=== PATIENT | female | born 2000 | race Caucasian/White ===

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

== ENCOUNTER 2018-04-23 14:12 | Emergency (ER) | payer OTHER ==
[2018-04-23 14:54] VITALS: BP 127/80
[2018-04-23] MEDS ORDERED: Ibuprofen ADULT LIQ* 600 MG/30 ML UDC PO ONE (15:19)
[2018-04-23] MEDS ORDERED: Ondansetron ODT TAB* 4 MG PO ONE (15:20)
--- NOTE | 2018-04-23 15:27 | UC ---
General HPI - HPI Summary HPI Summary: Patient presents complaining of nausea, migraine headache, feeling shaky and having chills. She states it began last week and then got better however yesterday she started to feel the same. She denies any associated history of injury but states this is not the worst headache of her life and she has not had an actual fever. not an abrupt headache. She admits to having had a runny nose and occasional cough but no short of breath, nausea, vomiting or diarrhea. She does have history of migraine and reports that the headache part does feel a typical migraine. She's been taking Tylenol but it has not given her relief. - History of Current Complaint Chief Complaint: UCGeneralIllness Stated Complaint: MCDOWELL/NAUSEA Time Seen by Provider: 04/23/18 15:11 Hx Obtained From: Patient Hx Last Menstrual Period: 04/11/18 Pain Intensity: 7 Associated Signs & Symptoms: Positive: Cough, Headache, Nausea - Allergy/Home Medications Allergies/Adverse Reactions: Allergies Allergy/AdvReac Type Severity Reaction Status Date / Time No Known Allergies Allergy Verified 04/23/18 14:54 Home Medications: Home Medications Aspirin/Acetaminophen/Caffeine [Headache Relief Caplet] 2 each PO DAILY [History Confirmed 04/23/18] PMH/Surg Hx/FS Hx/Imm Hx Neurological History: Migraine - Surgical History Surgical History: None - Family History Known Family History: Positive: Diabetes, Other - sudden in paternal GM before age 50. MIGRAINES - Social History Occupation: Employed Part-time, Student - Mother has migraines Alcohol Use: None Substance Use Type: None Smoking Status (MU): Never Smoked Tobacco - Immunization History Vaccination Up to Date: Yes Review of Systems Constitutional: Chills Eyes: Photophobia ENT: Sinus Congestion Gastrointestinal: Nausea Neurological: Headache Is Patient Immunocompromised?: No All Other Systems Reviewed And Are Negative: Yes Physical Exam Triage Information Reviewed: Yes Appearance: Well-Appearing Vital Signs: Initial Vital Signs Temp 98.1 F 04/23/18 14:47 Pulse 74 04/23/18 14:47 Resp 16 04/23/18 14:47 BP 127/80 04/23/18 14:47 Pulse Ox 100 04/23/18 14:47 Vital Signs Reviewed: Yes Eyes: Positive: Conjunctiva Clear ENT: Positive: Pharynx normal, Nasal congestion, TMs normal. Negative: Nasal drainage, Sinus tenderness Neck: Positive: Supple, Nontender, No Lymphadenopathy. Negative: Nuchal Rigidity Respiratory: Positive: Lungs clear, Normal breath sounds Cardiovascular: Positive: RRR, No Murmur Abdomen Description: Positive: Nontender, No Organomegaly, Soft Bowel Sounds: Positive: Present Musculoskeletal: Positive: ROM Intact Neurological: Positive: Other: - Patient is alert and oriented to person place and time. Cranial nerves II through XII are intact. She performs rapid alternating moves with ease. She has 5 out of 5 strength and 2+ reflexes 4. negative Romberg and negative pronator drift. She has a normal steady gait. Re-Evaluation - Re-Evaluation First Eval Re-Evaluation Time: 15:59 Change: Improved - states nausea is gone and MCDOWELL is resolving. Course/Dx - Course Course Of Treatment: no concern for intracranial lesion or bleed. hx / PE c/w uri and migraine.. will tx with nsaid and zofran. - Differential Dx - Multi-Symptom Provider Diagnoses: URI. migraine headache. Discharge - Sign-Out/Discharge Documenting (check all that apply): Patient Departure All imaging exams completed and their final reports reviewed: No Studies - Discharge Plan Condition: Improved Disposition: HOME Prescriptions: Ondansetron [Zofran Odt] 4 mg PO Q6HR PRN #20 tab.rapdis PRN Reason: Nausea Patient Education Materials: Upper Respiratory Infection (ED), Migraine Headache (ED) Forms: *Work Release Referrals: Dustin Jiménez MD [Primary Care Provider] - 5 Days Additional Instructions: TAKE OVER THE COUNTER ALEVE PER LABEL NEEDED FOR HEADACHES. - Billing Disposition and Condition Condition: IMPROVED Disposition: Home
== END 2018-04-23 16:08 | disposition home or self-care (01) ==
LOC: UCCORT 14:12
DX: J06.9 Acute upper respiratory infection, unspecified (principal); G43.909 Migraine, unspecified, not intractable, without status migrainosus
CPT/HCPCS: 99212; A9270-GY; G0463

== ENCOUNTER 2018-07-19 12:59 | Emergency (ER) | payer OTHER ==
--- OUTSIDE RECORDS SUMMARY | 2018-07-19 13:05 | XMS REPORT | Continuity of Care Document ---
:2000 External Reference #:[id number] Author Name Unruly CintronDO Address [address] [place] [address] Care Team Providers Name Role Phone Dustin Jiménez MD Care Team Information Mail List Librarian Unavailable Dustin Jiménez MD Primary Care Physician Unavailable Payers Type Date Identification Numbers Payment Provider Subscriber Policy Number: [id number] Agustin Crews PayID: [id number] [address] [place] [address] Advance Directives Description No Information Available Problems Description No Information Family History Description No Information Available Social History Type Date Description Comments Sex Unknown Tobacco Use Start: Unknown Patient has never smoked Smoking Status Reviewed: 06/15/18 Patient has never smoked Allergies, Adverse Reactions, Alerts Description No Known Drug Allergies Medications Medication Date Status Form Strength Qnty SIG Indications Ordering Provider Ondansetron Active Tablets 4mg 15tabs Dissolve Unruly Odt 018 Dispers Under Saida, Tongue DO Lo Loestrin Fe 00/00/0 Active Tablets 1mg-10 mcg Take 1 Unknown 000 / 10 mcg Tablet By Mouth Every Day Immunizations Description No Information Available Vital Signs Date Vital Result Comment 06/15/2018 2:56pm Height 66 inches 5'6" Weight 115.00 lb BP Systolic 132 mmHg BP Diastolic 87 mmHg Heart Rate 108 /min BMI (Body Mass Index) 18.6 kg/m2 Results Test Date Facility Test Result H/L Range Note CMP(!) 06/15/2018 [facility] Sodium(!) 138 mEq/L 134- 149 [address] [place] [address] [phone] Potassium(!) 4.0 mEq/L 3.6-5.5 Chloride Serum/Plasma(!) 106 mEq/L 94-112 Carbon Dioxide Ser/Plasm(!) 25 mEq/L 21-33 BUN - Urea Nitrogen(!) 14 mg/dL 6-24 Calcium Ser/Plasma Mass/Vol(!) 9.2 mg/dL 8.6-10.2 Creatinine Serum Mass/Vol(!) 0.9 mg/dL 0.5-1.4 Glucose Serum(!) 86 mg/dL 70-105 BUN/Creatinine Ratio(!) 15.6 RATIO 8.0-36 Albumin Serum/Plasma(!) 4.6 g/dL 3.5-5.2 Alkaline Phosphatase(!) 49 U/L 39-117 Bilirubin Total Mass/Vol 0.4 mg/dL 0.2-1.3 Ast - Sgot 16 U/L 5-34 Alt - SGPT 14 U/L 10-40 Protein Total 6.5 g/dL 6.2-8.1 Laboratory test 06/15/2018 [facility] Esr Sedimentation 12 MM 0-[address] Rate(!) [place] [address] [phone] C-Reative Protein 0.5 <5.0 TSH Thyroid Stim Hormone(!) 2.57 0.38-4.31 Celiac 2! 06/15/2018 [facility] Immunoglobulin A (Iga) 154 mg/dL 61 - 356 1 Tissue Transglutamianse Iga AB <1.2 U/mL 2 Laboratory test finding 06/15/2018 [facility] Free T4 (Free 0.79 ng/dL N 0.61- 1.12 3 Thyroxine) 1 Test Performed by: [address] [address] 2 REFERENCE VALUE <4.0 (Negative) Test Performed by: [address] [address] 3 [id number] Procedures Description No Information Available Encounters Type Date Location Provider Dx Diagnosis Office Visit 06/15/2018 [facility] Unruly Cintron, K59.00 Constipation , 3:15p Associates [facility] unspecified R10.13 Epigastric pain R11.0 Nausea R68.81 Early satiety Plan of Treatment Future Appointment(s):07/14/2018 10:00 am - Unruly Cintron DO at [facility]06/15/2018 - Unruly Cintron DOK59.00 Constipation, falfoarifzlM71.13 Epigastric painR11.0 IwigibL91.81 Early satiety
[2018-07-19 13:34] VITALS: BP 131/83
--- NOTE | 2018-07-19 13:41 | UC ---
FLU HPI - HPI Summary HPI Summary: 18 yo female presents with body aches, fatigue, and f/l ear pain for the last 4- 5 days. She has not been taking anything OTC. Has felt warm/cold, but has not taken her temperature. Denies cough, SOB, chest pain, n/v. - History of Current Complaint Chief Complaint: UCGeneralIllness Stated Complaint: BODY ACHES Time Seen by Provider: 07/19/18 13:40 Hx Obtained From: Patient Hx Last Menstrual Period: weeks Severity Currently: Mild Severity Initially: Moderate Pain Intensity: 6 Pain Scale Used: 0-10 Numeric - Allergy/Home Medications Allergies/Adverse Reactions: Allergies Allergy/AdvReac Type Severity Reaction Status Date / Time No Known Allergies Allergy Verified 07/19/18 13:34 Home Medications: Home Medications Omeprazole CAP* [Prilosec CAP* 20 MG] 40 mg PO DAILY 07/19/18 [History Confirmed 07/19/18] PMH/Surg Hx/FS Hx/Imm Hx GI/ History: Gastroesophageal Reflux Neurological History: Migraine - Surgical History Surgical History: None - Family History Known Family History: Positive: Diabetes, Other - sudden in paternal GM before age 50. MIGRAINES - Social History Lives: With Family Alcohol Use: Rare Substance Use Type: None Smoking Status (MU): Never Smoked Tobacco - Immunization History Vaccination Up to Date: Yes Review of Systems All Other Systems Reviewed And Are Negative: Yes Constitutional: Positive: Fatigue, Other - Body aches Skin: Positive: Negative Eyes: Positive: Negative ENT: Positive: Ear Ache Respiratory: Positive: Negative Cardiovascular: Positive: Negative Gastrointestinal: Positive: Negative Neurovascular: Positive: Negative Neurological: Positive: Negative Psychological: Positive: Negative Physical Exam - Summary Physical Exam Summary: GENERAL: NAD. WDWN. No pain distress. SKIN: No rashes, sores, lesions, or open wounds. HEENT: Head: AT/NC Eyes: EOM intact. Conjunctiva clear without inflammation or discharge. Ears: Hearing grossly normal. RIGHT TM with moderate bulging and clear fluid. No erythema No canal edema or drainage. Nose: Nasal mucosa pink and moist. NTTP maxillary and frontal sinus. Throat: Posterior oropharynx without exudates, erythema, or tonsillar enlargement. Uvula midline. NECK: Supple. Nontender. No lymphadenopathy. CHEST: CTAB. No r/r/w. No accessory muscle use. Breathing comfortably and in no distress. CV: RRR. Without m/r/g. Pulses intact. NEURO: Alert. PSYCH: Age appropriate behavior. Triage Information Reviewed: Yes Vital Signs: Initial Vital Signs Temp 99.1 F 07/19/18 13:30 Pulse 81 07/19/18 13:30 Resp 15 07/19/18 13:30 BP 131/83 07/19/18 13:30 Pulse Ox 100 07/19/18 13:30 Vital Signs Reviewed: Yes Flu Course/Dx - Course Course Of Treatment: Serous otitis media right. Rx for claritin and flonase. - Differential Dx/Diagnosis Provider Diagnosis: Serous otitis media Discharge - Sign-Out/Discharge Documenting (check all that apply): Patient Departure All imaging exams completed and their final reports reviewed: No Studies - Discharge Plan Condition: Stable Disposition: HOME Prescriptions: Fluticasone NASAL SPRAY 50MCG* [Flonase NASAL SPRAY 50MCG*] 2 spray BOTH NARES DAILY #1 btl LoraTADine TAB(NF) [Claritin 10 MG TAB(NF)] 10 mg PO DAILY #30 tab Patient Education Materials: Serous Otitis Media (ED) Referrals: Dustin Jiménez MD [Primary Care Provider] - Additional Instructions: If you develop a fever, shortness of breath, chest pain, new or worsening symptoms - please call your PCP or go to the ED. - Billing Disposition and Condition Condition: STABLE Disposition: Home
== END 2018-07-19 14:09 | disposition home or self-care (01) ==
LOC: UCEAST 12:59
DX: H65.91 Unspecified nonsuppurative otitis media, right ear (principal); K21.9 Gastro-esophageal reflux disease without esophagitis; Z79.899 Other long term (current) drug therapy
CPT/HCPCS: 99211; G0463

== ENCOUNTER 2018-09-08 14:25 | Inpatient (IN) | payer OTHER ==
--- NOTE | 2018-09-08 14:42 | ED ---
Substance Abuse/Use - HPI Summary HPI Summary: Pt is a 18 y/o female brought in by EMS who presents to the ED s/p overdose. At 10:00 she intentionally took 8-10 Excedrin Migraine pills, each of which contains 250 mg Acetaminiophen, 250 mg ASA, and 65 mg caffeine. Pt also took 2 Extra Strength Aleve pills, each of which contains 250 mg Naproxen. Her mother and grandfather found her unresponsive at home. Upon EMS arrival she was responsive to pain and shortly thereafter became alert. Poison control recommends lab work, EKG, and charcoal. She now reports nausea and acute abdominal pain rated a 7/10 in severity. When asked why she took these medications, she states she wanted to make herself sick but doesnt know why. Pt regrets taking the medications and states it was not a suicide attempt. She denies any hx of depression, anxiety, or suicide attempt. FHx depression and anxiety. She denies any use of other drugs or alcohol. - History Of Current Complaint Stated Complaint: MHE Time Seen by Provider: 09/08/18 14:26 Hx Obtained From: Patient, Family/Cheese Production Supervisor - Parents Hx Last Menstrual Period: weeks Ingestion History: Type/Name Of Drug - 8-10 Excedrin Migraine pills, 2 Extra Strength Aleve pills, Approximate Time Of Ingestion - 10:00 Overdose Characteristics: Oral Aggravating Factor(s): Nothing Alleviating Factor(s): Nothing Associated Signs And Symptoms: Nausea, Other: - Abdominal pain - Allergies/Home Medications Allergies/Adverse Reactions: Allergies Allergy/AdvReac Type Severity Reaction Status Date / Time No Known Allergies Allergy Verified 07/19/18 13:34 Home Medications: Home Medications LoraTADine TAB(NF) [Claritin 10 MG TAB(NF)] 10 mg PO DAILY PRN 09/08/18 [ History Confirmed 09/08/18] Norethindr/Eth Estradiol(Nf) [Lo Loestrin Fe (NF)] 1 tab PO DAILY 09/08/18 [ History Confirmed 09/08/18] PMH/Surg Hx/FS Hx/Imm Hx Endocrine/Hematology History: Denies: Hx Diabetes, Hx Thyroid Disease Cardiovascular History: Denies: Hx Hypertension Respiratory History: Denies: Hx Asthma, Hx Chronic Obstructive Pulmonary Disease (COPD) GI History: Reports: Hx Gastroesophageal Reflux Disease Denies: Hx Ulcer Psychiatric History: Denies: Hx Anxiety, Hx Depression, Hx Suicide Attempt Infectious Disease History: No Infectious Disease History: Denies: Hx Hepatitis, Hx Human Immunodeficiency Virus (HIV), Traveled Outside the [place] in Last 30 Days - Family History Known Family History: Positive: Diabetes, Other - depression, anxiety, MIGRAINES - Social History Alcohol Use: Rare Hx Substance Use: No Substance Use Type: Reports: None Hx Tobacco Use: No Smoking Status (MU): Never Smoked Tobacco Review of Systems Positive: Abdominal Pain, Nausea Positive: Other - self-harm All Other Systems Reviewed And Are Negative: Yes Physical Exam - Summary Physical Exam Summary: Appearance: Well appearing, no pain distress Skin: warm, dry, reflects adequate perfusion, no signs of self-injury Head/face: normal Eyes: EOMI, ZENON ENT: mucous membranes moist Neck: supple, non-tender Respiratory: CTA, breath sounds present Cardiovascular: RRR, pulses symmetrical Abdomen: non-tender, soft Bowel Sounds: present Musculoskeletal: normal, strength/ROM intact Neuro: normal, sensory motor intact, A&Ox3 Psych: mildly flat affect Triage Information Reviewed: Yes Vital Signs On Initial Exam: Initial Vitals Temp Pulse Resp BP Pulse Ox 98.0 F 88 14 123/71 100 09/08/18 14:27 09/08/18 14:27 09/08/18 14:27 09/08/18 14:27 09/08/18 14:27 Vital Signs Reviewed: Yes Diagnostics - Vital Signs Vital Signs Temp Pulse Resp BP Pulse Ox 09/08/18 14:27 98.0 F 88 14 123/71 100 - Laboratory Result Diagrams: 09/08/18 15:09 09/08/18 15:09 Lab Statement: Any lab studies that have been ordered have been reviewed, and results considered in the medical decision making process. - EKG 15:16 Cardiac Rate: NL - 77 bpm EKG Rhythm: Sinus Rhythm ST Segment: Normal Summary of EKG Findings: Nl axis, nl intervals Re-Evaluation - Re-Evaluation First Eval Re-Evaluation Time: 16:25 Change: Unchanged Comment: Pt is medically cleared for a MHE. Course/Dx - Course Course Of Treatment: Nurse's notes reviewed. Patient with subtoxic ingestion. Patient has subtoxic Tylenol level at 4 hours. Her aspirin level was 19 and will be repeated. She was given a dose of charcoal. She has no ill effect including no tachypnea. This was per recommendation of poison control. She is cleared for mental health evaluation, following which she was accepted for inpatient therapy by involuntary admission by the psychiatrist. - Diagnoses Differential Diagnosis/HQI/PQRI: Positive: Other - Drug ingestion, suicide attempt, depression, anxiety, mood disorder Provider Diagnoses: Mood disorder, Suicide gesture, Suicide attempt by drug ingestion - Critical Care Time Critical Care Time: 30-74 min - Critical care time is exclusive of separately billable procedures Discharge - Sign-Out/Discharge Documenting (check all that apply): Sign-Out Patient Signing out patient TO: Mary Todd Patient Received Moderate/Deep Sedation with Procedure: No - Discharge Plan Condition: Stable Disposition: PSYCHIATRIC FACILITY[place] [place] Referrals: Dustin Jiménez MD [Primary Care Provider] - - Billing Disposition and Condition Condition: STABLE Disposition: Psychiatric Facility [facility] [place] - Attestation Statements Document Initiated by Scribe: Yes Documenting Scribe: Mary Jordan Provider For Whom Scribe is Documenting (Include Credential): Chuck Rordíguez MD Scribe Attestation: Mary Oquendo scrgueroed for Chuck Rodríguez MD on 09/08/18 at 1836. Scribe Documentation Reviewed: Yes Provider Attestation: The documentation as recorded by the Mary lewis accurately reflects the service I personally performed and the decisions made by Chuck brumfield MD Status of Scribe Document: Viewed
[2018-09-08] MEDS ORDERED: Charcoal ACTIVATED* 25 GM/120 ML BTL PO ONE (14:55)
[2018-09-08 15:16] LABS: Urine Appearance Clear; Urine Bacteria 1+ (Absent); Urine Bilirubin Negative (Negative); Urine Blood Negative (Negative); Urine Color Straw; Urine Glucose Negative (Negative); Urine Ketones Trace (Negative); Urine Nitrite Negative (Negative); Urine Protein Negative (Negative); Urine Red Blood Cell Trace(0-2/hpf) (Absent); Urine Specific Gravity 1.006 (1.010-1.030); Urine Squamous Epithelial Cell Present (Absent); Urine Urobilinogen Negative (Negative); Urine White Blood Cell 1+(6-10/hpf) (Absent)
[2018-09-08 15:29] LABS: ABS Basophils 0 10^3/ul (0-0.2); ABS Eosinophils 0 10^3/ul (0-0.6); ABS Lymphocytes 0.9 10^3/ul (1.0-4.8); ABS Monocytes 0.2 10^3/ul (0-0.8); ABS Neutrophils 4.8 10^3/ul (1.5-7.7); ABS Nucleated RBC 0 10^3/ul; Eosinophil % 0.5 %; Hematocrit 40 % (35-47); Hemoglobin 13.4 g/dl (12.0-16.0); Lymphocyte % 15.6 %; Mean Corpuscular HGB Conc 34 g/dl (31-36); Mean Corpuscular Hemoglobin 29 pg (27-31); Mean Corpuscular Volume 86 fL (80-97); Mean Platelet Volume 8.9 fL (7.4-10.4); Nucleated Red Blood Cells % 0; Platelet Count 261 10^3/ul (150-450); Red Blood Count 4.66 10^6/ul (4.00-5.40); Red Cell Distribution Width 14 % (10.5-15)
[2018-09-08 15:35] LABS: Barbiturates Urine Screen None Detected (None Detect); Benzodiazepine Urine Screen None Detected (None Detect); Urine Cannabinoids Screen None Detected (None Detect)
[2018-09-08 15:41] LABS: ALT 13 U/L (7-52); AST 21 U/L (13-39); Albumin 4.7 g/dL (3.2-5.2); Albumin/Globulin Ratio 1.8 (1-3); Alkaline Phosphatase 45 U/L (34-104); Anion Gap 11 mmol/L (2-11); BUN/Creatinine Ratio 12.7 (8-20); Blood Urea Nitrogen 9 mg/dL (6-24); CO2 Carbon Dioxide 22 mmol/L (22-32); Calcium 9.3 mg/dL (8.6-10.3); Chloride 108 mmol/L (101-111); Globulin 2.6 g/dL (2-4); Glucose 92 mg/dL (70-100); Potassium 3.7 mmol/L (3.5-5.0); Sodium 141 mmol/L (135-145); Total Protein 7.3 g/dL (6.4-8.9)
[2018-09-08 15:48] LABS: HCG Pregnancy < 0.60 mIU/mL
[2018-09-08 16:05] LABS: Acetaminophen 33 mcg/mL; Alcohol < 10 mg/dL (<10)
--- NOTE | 2018-09-08 20:13 | ED ---
Progress - Progress Note Progress Note: A 18 y/o female was seen by Dr. Rodríguez and Dr. Thomas had decided that the patient will be admitted before shift start at 19:00 09/08/18. The patient and her father was demanding to speak with a doctor because they did not want to be admitted and so Dr. Todd discussed with the patient's family the need for admission. The patient and her father are requesting to speak to a psychologist , but that is not possible. The patient has reported that she purposefully overdosed with intention for self harm. The patient will be [place] [facility] [place] - Consult/PCP Time Called: 16:20 Re-Evaluation - Re-Evaluation First Eval Re-Evaluation Time: 16:25 Change: Unchanged Comment: Pt is medically cleared for a MHE. Course/Dx - Course Course Of Treatment: A 18 y/o female was seen by Dr. Rodríguez and Dr. Thomas had decided that the patient will be admitted before shift start at 19:00 . The patient and her father was demanding to speak with a doctor because they did not want to be admitted and so Dr. Todd discussed with the patient's family the need for admission. The patient and her father are requesting to speak to a psychologist, but that is not possible. The patient has reported that she purposefully overdosed with intention for self harm. The patient will be admitted [place] [facility] [place] - Diagnoses Provider Diagnoses: Mood disorder, Suicide gesture, Suicide attempt by drug ingestion Discharge - Sign-Out/Discharge Documenting (check all that apply): Patient Departure - admit Patient Received Moderate/Deep Sedation with Procedure: No - Discharge Plan Condition: Stable Disposition: [place] [place] Billing Disposition and Condition Condition: STABLE Disposition: Psychiatric [place] [facility] - Attestation Statements Document Initiated by Scribe: Yes Documenting Scribe: Foster Velázquez Provider For Whom Pauline is Documenting (Include Credential): Mary Todd MD Scribe Attestation: Foster Oquendo scribed for Mary Todd MD on 09/09/18 at 0546. Scribe Documentation Reviewed: Yes Provider Attestation: The documentation as recorded by the Foster lewis accurately reflects the service I personally performed and the decisions made by Manny brumfield MD Status of Scribe Document: Viewed
[2018-09-08] MEDS ORDERED: Cetirizine* 10 MG TAB PO PRN (21:00)
[2018-09-08] MEDS ORDERED: Al Hydrox/Mg Hydrox/Simet LIQ* 30 ML UDC PO PRN (21:10)
[2018-09-09 08:28] LABS: HDL Cholesterol 54.4 mg/dL
[2018-09-09 08:42] VITALS: BP 131/54
[2018-09-09] MEDS ORDERED: LO LOESTRIN FE PO SCH (09:00)
[2018-09-09] MEDS ORDERED: Vitamin THERAPEUTIC TAB PO SCH (09:00)
[2018-09-09] MEDS ORDERED: Pantoprazole TAB * 40 MG TAB PO SCH (09:00)
--- NOTE | 2018-09-09 16:28 | HP ---
CC: [facility] * HISTORY AND PHYSICAL AND DISCHARGE SUMMARY: DATE OF ADMISSION: 09/08/18 PROVIDER: Elba Trujillo NP, in Psychiatry. SUPERVISING PHYSICIAN: Hari Myers MD.* (DICTATED BY ELBA TRUJILLO NP) JUSTIFICATION FOR ADMISSION: The patient is in need of 24-hour supervision and care secondary to suicidal ideation. CHIEF COMPLAINT: "I have been depressed for 2 years." HISTORY OF PRESENT ILLNESS: The patient is a 18-year-old single white female with a history of depression who arrives brought in on a 9.39 status following being found "unresponsive" and then responsive to painful stimuli after taking an overdose of approximately 8 Excedrin tablets. Callie reports being depressed for 2 years, coincident approximately with her high school graduation. She states that sometimes the depression remits and lasts for up to a few weeks. She does not describe any symptoms of ana or emotional dysregulation that is completely disruptive for more than a day or two at a time. She has had suicidal ideation in the past. She has never had any other suicide attempts. She states that this overdose event was not an intentional suicide attempt, but instead was a need to sleep through her bad feelings. PAST PSYCHIATRIC HISTORY: She has no psychiatric treatment history, other than seeing a counselor at her previous college in [place], where she lasted approximately a week. The counselor and she decided that it would be better for her to come back home as it was a poor fit. She currently does not have any providers and she is looking for them. She has had suicidal ideation in the past, but no attempts. She has never had homicidal ideation. She does not have access to weapons. She has not previously been on psychiatric medications. PAST MEDICAL HISTORY: She has had Lyme disease. She sees Dr. Jiménez at [facility]. She currently takes control, Lo Loestrin. She also takes omeprazole. TRAUMA HISTORY: She denies that there is a trauma history. She states there are no assaults or traumas, "just stupid people." History of substance use is denied. She does not smoke or drink more than 1 drink at a time and the last time she had a drink was April. She denies using any illicit substances. Traumatic brain injury is denied. FAMILY HISTORY: Mom has depression and from meeting her, it would seem she has troublesome anxiety as well. Dad does not endorse any history of psychiatric illness. Her brother has depression and anxiety. SOCIAL HISTORY: She was born in [place] at [facility]. She currently lives with her parents and her brother and sister. She is in college at [employer]; this is her last semester. She is majoring in international studies. At the end of the semester, she is going for 2 weeks to [place] to study abroad. She does not know Citizen [place]. She knows Slovenian and [place]iny[place]. 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 She has never been in the . She does not have any legal problems. REVIEW OF SYMPTOMS: The patient reports feeling fatigued and cold. She denies shortness of breath. She denies chest pain or abdominal pain. She denies neurological symptoms. She denies fevers or changes in weight. She does have gastric pain, but she states that is normal state of affairs for her and it tends to go away in the evenings. DIAGNOSTIC STUDIES/LAB DATA: Laboratory data are generally within normal limits. Exceptions include absolute lymphocytes, low at 0.9. Urine has low specific gravity, trace ketones, present leukocyte esterase, present white blood cells, present squamous epithelial cells, and 1+ bacteria. Toxicology screen is negative for illicit substances, but on 09/08/18 at 15:09 salicylates are at 19.7, acetaminophen is at 33. On 09/08/18 at 19:01, salicylate drops to 11.4 and acetaminophen was either not tested for or was 0. MENTAL STATUS EXAMINATION: Callie is a slim young woman with brown hair. She is calm and cooperative, although she does complain of being cold and wanting to go home. She appears almost tearful. She is cooperative and calm. Speech is of a normal rate, tone, and volume. She is somewhat dysthymic. She has a full range of affect and is occasionally close to tears. Her thought processes are normal. She is not delusional. She denies homicidality and suicidality. She denies hallucinations. Her insight is good. Her judgment is fair. She is alert and oriented x3. DIAGNOSES: [place] I: Major depressive disorder, recurrent, moderate; rule out generalized anxiety disorder. [place] II: Deferred. [place] III: Lyme disease. IMPRESSION: Callie is a 18-year-old single white female who comes to the hospital following a minor overdose of pills she usually uses for headaches with the stated purpose of wanting to sleep through the day because she is not enjoying her life right now. She was found at her home and then taken to the hospital by ambulance and then admitted here. PLAN: The patient is admitted to the adult behavioral health unit and placed on q.15 minute checks for safety. The patient is encouraged to participate in supportive milieu, individual and group therapies. Estimated length of stay is 1 to 3 days. Discharge planning is going to include the family involvement as well as outpatient providers. CONDITION AT THE TIME OF DISCHARGE: Improved, psychiatrically cleared, stable, and was slightly social with peers. Her family is agreeable to discharge. She has done well here psychiatrically. She is willing to try new medications, which will be dispensed at discharge at her local pharmacy and she is referred to [facility] or she may choose to find independent practitioners. MENTAL STATUS EXAM AT THE TIME OF DISCHARGE: Callie is calm, cooperative, and makes good eye contact. She is alert and oriented x3. Her grooming is adequate. Her speech pace is normal. Her thought processes are logical. She is not psychotic or delusional. She denies AH, VH, SI, and HI. Her insight is good. Her judgment is fair. She states she is willing to follow up and she is urged to see a therapist. DISCHARGE INSTRUCTIONS TO THE PATIENT: A. Medications: She is going to stay on the same medications from home. I am also adding sertraline 50 mg at bedtime, dispense 30, and hydroxyzine 25 mg q.6 hours, dispense 90 p.r.n. anxiety. B. Diet is regular. C. Activities as tolerated. Callie is a nonsmoker. There are no studies pending at the time of discharge. D. Followup care. She has an appointment at [facility] on Thursday. She is also encouraged, if she prefers, to look for an outpatient provider for both therapy and psychiatric medication. E. Substance abuse followup is not indicated. HOSPITAL COURSE: Part A, the HPI presented here. Part B. Psychiatric treatment was rendered. Callie was admitted to adult behavioral unit and placed on 15 minute checks for safety. She did well on the unit, but went to few groups and tended to avoid peers as they were intimidating. She was not able to attempt med changes as she was discharged quickly. Sertraline and hydroxyzine were started and prescribed to [facility] [employer] [facility]. She is not on an antipsychotic. I did meet with her family. They are known to me from the community and from practicing with another child of theirs in the outpatient setting. They are responsible and reasonable parents who are very interested in the safety of their child. She is improved. She sees that she made an error and will not be doing that again according to her. Her insight improved upon admission here. ELAB TRUJILLO, GOMEZ [id number]/CPS #: [id number] ALTHEA
== END 2018-09-09 15:55 | disposition home or self-care (01) | DRG 885 ==
LOC: ED 14:25 → BSU 18:40
PROVIDERS: ADMIT Psychiatry & Neurology Psychiatry; ATTEND Psychiatry & Neurology Psychiatry
DX: F33.1 Major depressive disorder, recurrent, moderate (principal); A69.20 Lyme disease, unspecified; T39.1X2A Poisoning by 4-Aminophenol derivatives, intentional self-harm, initial encounter; T39.312A Poisoning by propionic acid derivatives, intentional self-harm, initial encounter; K21.9 Gastro-esophageal reflux disease without esophagitis; T43.612A Poisoning by caffeine, intentional self-harm, initial encounter; Z81.8 Family history of other mental and behavioral disorders; Y92.009 Unspecified place in unspecified non-institutional (private) residence as the place of occurrence of the external cause; Z83.3 Family history of diabetes mellitus
CPT/HCPCS: 36415; 80053; 80061; 80307; 80320; 80329; 81003; 81015; 83036; 83605; 84702; 85025; 87086; 93005; 99238; 99284; A9270-GY; G0480

== ENCOUNTER 2019-09-15 18:59 | Emergency (ER) | payer OTHER ==
--- OUTSIDE RECORDS SUMMARY | 2019-09-15 19:04 | XMS REPORT ---
:2000 Author Organization [facility] Care Team Providers Name Role Phone Corry Lr Primary Care Physician Unavailable Allergies, Adverse Reactions, Alerts Allergy Code CodeSystem Reaction Severity Criticality Status Start Substance Date Moderate Medications Medication Medication Medication Start Stop Route Dose Status Fill Code CodeSystem Date Date Instructions hydroxyzine 581258 RxNorm 2018-08 oral 25 mg active for 23 HCl -21 tablet day(s) sertraline 397080 RxNorm 2018-08 oral 50 mg active for 30 -21 7-14 tablet day(s) Problems Problem Name Code CodeSystem Alternate Alternate Start End Status Narrative Code CodeSystem Date Date Depressive 30019754 SNOMED-CT Active episode, 3-22 unspecified Relevant diagnostic tests/laboratory data Narrative No Information Procedures Procedure Code CodeSystem Target Date of Status Service Device Device Device Name Site Procedure Delivery Code Name UID Location Psychotherap [id number] SNOMED-CT () 2018-10-22 complete Mental y, 45 04 d Health- minutes with [address], [id number] Psychotherap [id number] SNOMED-CT () 2019-02-22 complete Mental y, 45 04 d Health- minutes with [address], [id number] Psychotherap [id number] SNOMED-CT () 2018-11-05 complete Mental y, 45 04 d Health- minutes with [address], [id number] Psychotherap [id number] SNOMED-CT () 2018-12-06 complete Mental y, 45 04 d Health- minutes with [address], [id number] Office or [id number] SNOMED-CT () 2018-11-24 complete Mental other 7 d Health- outpatient [place] visit for [address], established [id number] patient, [id number] which requires at least 2 of these 3 tanner components: An expanded problem focused history; An expanded problem focused examination; Medical decision making of low Office or [id number] SNOMED-CT () 2019-03-28 complete Mental other 7 d Health- outpatient [place]odora visit for [address], established [id number] patient, [id number] which requires at least 2 of these 3 tanner components: An expanded problem focused history; An expanded problem focused examination; Medical decision making of low Office or [id number] SNOMED-CT () 2019-05-25 complete Mental other 6 d Health- outpatient [place] visit for [address], an [place], established [id number] patient, [id number] which requires at least 2 of these 3 tanner components: A problem focused history; A problem focused examination; Straightforw rishabh medical decision making. Counselin Office or [id number] SNOMED-CT () 2018-12-30 complete Mental other 6 d Health- outpatient [place]odora visit for [address], established [id number] patient, [id number] which requires at least 2 of these 3 tanner components: A problem focused history; A problem focused examination; Straightforw rishabh medical decision making. Counselin SNOMED-CT () 2019-01-05 complete Mental d Health- [address], [id number] SNOMED-CT () 2019-02-01 complete Mental d Health- [place], [id number] SNOMED-CT () 2019-03-18 complete Mental d Health- [address], [id number] SNOMED-CT () 2019-05-20 complete Mental d Health- [address], [id number] SNOMED-CT () 2018-11-01 complete Mental d Health- [place] [address] [place], [place], [id number] Encounters/Encounter Diagnoses Encounter Name Encounter Diagnosis Diagnosis Diagnosis Date of Service Code Code Name CodeSystem Diagnosis Delivery Location [facility] [id number] Depressive SNOMED-CT 2019-05-25 Behavioral Established episode, Health patient 10 unspecified Clinic [address] [place], [place], [id number] Vital Signs No Information Social History Element Description Description Start End Code CodeSystem AdditionalInfo Date Date SexAssignedAtBirth Female F AdministrativeGender 01-07 Hospital Discharge Instructions Reason For Referral Medical Equipment FDA Assessments
[2019-09-15 19:19] VITALS: BP 134/65
[2019-09-15 19:31] LABS: Influenza B Molecular POSITIVE (Negative)
--- NOTE | 2019-09-15 19:39 | UC ---
FLU HPI - HPI Summary HPI Summary: 19 yo female presents with flu symptoms. She tells me that this morning she developed fatigue, body aches, dry cough, sore throat, and fever. She took tylenol and felt better. She did get a flu shot this year, but is concerned that she has the flu. She is eating and drinking well. Denies rash, sob, abdominal pain, n/v, dysuria. LMP was 1st week in aug. - History of Current Complaint Chief Complaint: UCRespiratory Stated Complaint: FEVER Time Seen by Provider: 09/15/19 19:39 Hx Obtained From: Patient Hx Last Menstrual Period: early aug 2019 Onset/Duration: Sudden Onset Severity Currently: None Pain Intensity: 0 - Allergy/Home Medications Allergies/Adverse Reactions: Allergies Allergy/AdvReac Type Severity Reaction Status Date / Time No Known Allergies Allergy Verified 07/19/18 13:34 Home Medications: Home Medications Aspirin/Acetaminophen/Caffeine [Headache Relief Caplet] 2 tab PO DAILY 04/23/18 [History Confirmed 09/08/18] Omeprazole CAP (NF) [Prilosec CAP* 20 MG] 40 mg PO DAILY 07/19/18 [History Confirmed 09/08/18] LoraTADine TAB(NF) [Claritin 10 MG TAB(NF)] 10 mg PO DAILY PRN 09/08/18 [ History Confirmed 09/08/18] Norethindr/Eth Estradiol(Nf) [Lo Loestrin Fe (NF)] 1 tab PO DAILY 09/08/18 [ History Confirmed 09/08/18] Sertraline* [Zoloft*] 50 mg PO BEDTIME #30 tab 09/09/18 [Rx] hydrOXYzine HCL TAB* [Atarax 25 MG TAB*] 25 mg PO QID PRN #90 tab 09/09/18 [Rx] Oseltamivir CAP* [Tamiflu CAP*] 75 mg PO BID #10 cap 09/15/19 [Rx] PMH/Surg Hx/FS Hx/Imm Hx GI/ History: Gastroesophageal Reflux Psychological History: Anxiety, Depression - Surgical History Surgical History: None - Family History Known Family History: Positive: Diabetes, Other - depression, anxiety, MIGRAINES - Social History Occupation: Student Lives: With Family Alcohol Use: Rare Substance Use Type: None Smoking Status (MU): Never Smoked Tobacco - Immunization History Most Recent Influenza Vaccination: this season Most Recent Pneumonia Vaccination: none Vaccination Up to Date: Yes Review of Systems All Other Systems Reviewed And Are Negative: No Constitutional: Positive: Fever, Fatigue, Other - Body aches Skin: Positive: Negative Eyes: Positive: Negative ENT: Positive: Sore Throat Respiratory: Positive: Cough Cardiovascular: Positive: Negative Gastrointestinal: Positive: Negative Neurovascular: Positive: Negative Neurological/Mental Status: Positive: Negative Psychological: Positive: Negative Physical Exam - Summary Physical Exam Summary: GENERAL: NAD. WDWN. No pain distress. SKIN: No rashes, sores, lesions, or open wounds. HEENT: Head: AT/NC Eyes: EOM intact. Conjunctiva clear without inflammation or discharge. Ears: Hearing grossly normal. TMs intact, no bulging, erythema, or edema. Nose: Nasal mucosa pink and moist. NTTP maxillary and frontal sinus. Throat: Posterior oropharynx without exudates, erythema, or tonsillar enlargement. Uvula midline. NECK: Supple. Nontender. No lymphadenopathy. CHEST: CTAB. No r/r/w. No accessory muscle use. Breathing comfortably and in no distress. CV: RRR. Pulses intact. Cap refill <2seconds NEURO: Alert. PSYCH: Age appropriate behavior. Triage Information Reviewed: Yes Vital Signs: Initial Vital Signs Temp 100.8 F 09/15/19 19:16 Pulse 116 09/15/19 19:16 Resp 18 09/15/19 19:16 BP 134/65 09/15/19 19:16 Pulse Ox 99 09/15/19 19:16 Laboratory Tests 09/15/19 19:27 Influenza B (Rapid) Positive H Vital Signs Reviewed: Yes Flu Course/Dx - Course Course Of Treatment: POC flu positive. - Differential Dx/Diagnosis Provider Diagnosis: Influenza Discharge ED - Sign-Out/Discharge Documenting (check all that apply): Patient Departure All imaging exams completed and their final reports reviewed: No Studies - Discharge Plan Condition: Stable Disposition: HOME Prescriptions: Oseltamivir CAP* [Tamiflu CAP*] 75 mg PO BID #10 cap Patient Education Materials: Influenza (ED) Referrals: Dustin Jiménez MD [Primary Care Provider] - Additional Instructions: Most people with the flu recover within one to two weeks without treatment. However, serious complications of the flu can occur. Go to the ER immediately if you: -- You feel short of breath or have trouble breathing -- You have pain or pressure in your chest or stomach -- You have signs of being dehydrated, such as dizziness when standing or not passing urine -- You feel confused -- You cannot stop vomiting or you cannot drink enough fluids There are several groups of people who are at increased risk for flu complications. These include women, young children (<5 years of age and especially <2 years of age), people older than 65 years of age, and people with certain diseases such as chronic lung disease (such as asthma), heart disease, diabetes, immunosuppressing conditions (such as HIV infection or transplantation), and some other diseases. Treat symptoms Treating the symptoms of influenza can help you to feel better but will not make the flu go away faster. -- Rest until the flu is fully resolved, especially if the illness has been severe. -- Fluids Drink enough fluids so that you do not become dehydrated. One way to leaf coverer if you are drinking enough is to look at the color of your urine. Normally, urine should be light yellow to nearly colorless. If you are drinking enough, you should pass urine every three to five hours. -- Acetaminophen (sample brand name: Tylenol) can relieve fever, headache, and muscle aches. Aspirin and medicines that include aspirin (eg, bismuth subsalicylate [sample brand name: Pepto-Bismol]) are not recommended for children under 18 because aspirin can lead to a serious disease called Hallie syndrome. -- Cough medicines are not usually helpful; cough usually resolves without treatment. We do not recommend cough or cold medicine for children under age 6 years. - Billing Disposition and Condition Condition: STABLE Disposition: Home
[2019-09-15] MEDS ORDERED: Oseltamivir CAP* 75 MG CAP PO ONE (20:02)
== END 2019-09-15 20:15 | disposition home or self-care (01) ==
LOC: UCEAST 18:59
DX: J11.1 Influenza due to unidentified influenza virus with other respiratory manifestations (principal); K21.9 Gastro-esophageal reflux disease without esophagitis; F41.8 Other specified anxiety disorders; Z79.82 Long term (current) use of aspirin; Z79.899 Other long term (current) drug therapy
CPT/HCPCS: 99212; A9270-GY; G0463